=== PATIENT | female | born 1970 | race Caucasian/White ===

== ENCOUNTER 2017-08-04 14:19 | Emergency (ER) | payer OTHER ==
[2017-08-04] MEDS: ACETAMINOPHEN 325 MG TAB PO (15:21)
== END 2017-08-04 17:00 | disposition home or self-care (01) ==
LOC: FTE 14:19
DX: S93.401A Sprain of unspecified ligament of right ankle, initial encounter (principal); I10 Essential (primary) hypertension; E03.9 Hypothyroidism, unspecified; F17.210 Nicotine dependence, cigarettes, uncomplicated; X58.XXXA Exposure to other specified factors, initial encounter; Y92.9 Unspecified place or not applicable
CPT/HCPCS: 73610; 73610-RT; 99283-25

== ENCOUNTER 2017-08-24 17:47 | Emergency (ER) | payer SELFPAY, OTHER | END 2017-08-24 21:09 | disposition left against medical advice (07) | LOC: FTE 17:47 | DX: Z53.21 Procedure and treatment not carried out due to patient leaving prior to being seen by health care provider (principal) ==

== ENCOUNTER 2017-10-13 17:46 | Emergency (ER) | payer OTHER ==
[2017-10-13] MEDS ORDERED: ONDANSETRON 4 MG INJ IV (21:00)
[2017-10-13] MEDS ORDERED: ACETAMINOPHEN 325 MG TAB PO (21:00)
[2017-10-13] MEDS: IBUPROFEN 600 MG TAB PO (21:30)
[2017-10-13] MEDS: SOD CHLORIDE 0.9% 1,000 ML IV (21:31)
[2017-10-13] MEDS: ONDANSETRON 4 MG INJ IV (21:43)
[2017-10-13] MEDS: HYDROmorphONE 0.5 MG/0.5 ML SYG IV (21:43)
[2017-10-14] MEDS: HALOPERIDOL 5 MG INJ IM (01:57)
[2017-10-14] MEDS ORDERED: ACETAMINOPHEN 325 MG TAB PO (02:00)
[2017-10-14] MEDS ORDERED: HALOPERIDOL 5 MG INJ IM (02:00)
[2017-10-14] MEDS ORDERED: morphine 2 MG INJ IV (02:00)
[2017-10-14] MEDS ORDERED: BENZONATATE 100 MG CAP PO (02:00)
[2017-10-14] MEDS ORDERED: HYDROCODONE/APAP (5/325) TAB PO ×2 (02:00)
[2017-10-14] MEDS ORDERED: ALBUTEROL/IPRATROPIUM (NEB) 3 ML AMP HHN (02:00)
[2017-10-14] MEDS ORDERED: NACL 0.9% 3 ML SYG IV (02:00)
[2017-10-14] MEDS ORDERED: MECLIZINE 25 MG TAB PO (02:00)
[2017-10-14] MEDS ORDERED: traMADol 50 MG TAB PO (02:00)
[2017-10-14] MEDS ORDERED: LORAZEPAM 0.5 MG TAB PO (02:00)
[2017-10-14] MEDS ORDERED: PANTOPRAZOLE (EC) 40 MG TAB PO (06:00)
[2017-10-14] MEDS ORDERED: LEVOTHYROXINE 100 MCG TAB PO (07:00)
[2017-10-14] MEDS ORDERED: LOSARTAN 50 MG TAB PO (09:00)
[2017-10-14] MEDS ORDERED: HEPARIN 5,000 UNIT/0.5 ML VIAL SC (09:00)
[2017-10-14] MEDS ORDERED: HYDROXYCHLOROQUINE 200 MG TAB PO (09:00)
[2017-10-14] MEDS ORDERED: ASPIRIN 81 MG TAB PO (09:00)
[2017-10-14] MEDS ORDERED: GABAPENTIN 300 MG CAP PO (09:00)
[2017-10-14] MEDS ORDERED: ATORVASTATIN 20 MG TAB PO (21:00)
== END 2017-10-14 02:24 | disposition left against medical advice (07) ==
LOC: E/R 10-14 02:24
DX: R53.1 Weakness (principal); I10 Essential (primary) hypertension; E03.9 Hypothyroidism, unspecified; F17.210 Nicotine dependence, cigarettes, uncomplicated; R40.2142 Coma scale, eyes open, spontaneous, at arrival to emergency department; R40.2252 Coma scale, best verbal response, oriented, at arrival to emergency department; R40.2362 Coma scale, best motor response, obeys commands, at arrival to emergency department
CPT/HCPCS: 96372; 96374; 96375; 99284-25

== ENCOUNTER 2017-10-14 16:11 | Inpatient (IN) | payer OTHER ==
[2017-10-14] MEDS ORDERED: LORAZEPAM 2 MG INJ (16:40)
[2017-10-14] MEDS: morphine 4 MG/ML VIAL IV (17:53)
[2017-10-14] MEDS: ONDANSETRON 4 MG INJ IV ×2 (17:53→21:00)
[2017-10-14 17:56] LABS: ADD MAN DIFF? NO
[2017-10-14 17:59] LABS: BASOPHILS % 0.6 % (0.0-2.0); EOSINOPHILS # 0.2 10^3/ul (0.0-0.5); EOSINOPHILS % 3.1 % (0.0-7.0); HEMATOCRIT 40.7 % (37.0-47.0); HEMOGLOBIN 13.7 g/dl (12.0-16.0); LYMPHOCYTES # 1.8 10^3/ul (0.8-2.9); LYMPHOCYTES % 27.2 % (15.0-51.0); MEAN CORPUSCULAR HEMOGLOBIN 29.3 pg (29.0-33.0); MEAN CORPUSCULAR HGB CONC 33.7 g/dl (32.0-37.0); MEAN CORPUSCULAR VOLUME 87.2 fl (82.0-101.0); MEAN PLATELET VOLUME 9.2 fl (7.4-10.4); MONOCYTE # 0.7 10^3/ul (0.3-0.9); MONOCYTES % 9.8 % (0.0-11.0); PLATELET COUNT 232 10^3/UL (140-415); RED BLOOD COUNT 4.67 10^6/ul (4.20-5.40); RED CELL DISTRIBUTION WIDTH 12.4 % (11.5-14.5)
[2017-10-14 17:59] LABS: WHITE BLOOD COUNT 6.7 10^3/ul (4.8-10.8)
[2017-10-14 18:17] LABS: ANION GAP 12 (8-16); BLOOD UREA NITROGEN 24 mg/dl (7-20); CALCIUM 9.2 mg/dl (8.4-10.2); CARBON DIOXIDE 28 mmol/L (21-31); CHLORIDE 107 mmol/L (97-110); CREATININE 0.93 mg/dl (0.44-1.00); GLUCOSE 87 mg/dl (70-220); POTASSIUM 4.4 mmol/L (3.5-5.1); SODIUM 143 mmol/L (135-144)
[2017-10-14 18:19] LABS: INR 0.96; PARTIAL THROMBOPLASTIN TIME 33.7 Sec (25.0-35.0); PROTIME 12.9 Sec (11.9-14.9)
[2017-10-14] MEDS: LORAZEPAM 2 MG INJ IV (18:31)
[2017-10-14 18:42] LABS: ETHANOL < 10.0 mg/dl
[2017-10-14 18:48] LABS: OPIATES Negative (NEGATIVE)
[2017-10-14 18:50] LABS: AMPHETAMINE/METHAMPHETAMINE Positive (NEGATIVE); BARBITURATES Negative (NEGATIVE); BENZODIAZEPINES Negative (NEGATIVE); CANNABINOIDS Positive (NEGATIVE); COCAINE Negative (NEGATIVE)
[2017-10-14] MEDS: PANTOPRAZOLE (EC) 40 MG TAB PO (19:00)
[2017-10-15] MEDS: LORAZEPAM 2 MG INJ IV (04:00)
[2017-10-15] MEDS: LEVOTHYROXINE 100 MCG TAB PO (08:37)
[2017-10-15] MEDS: HYDROXYCHLOROQUINE 200 MG TAB PO (08:38)
[2017-10-15] MEDS: LOSARTAN 50 MG TAB PO (08:38)
[2017-10-15] MEDS: ENOXAPARIN 40 MG/0.4 ML SYG SC (08:39)
[2017-10-15] MEDS: HYDROCODONE/APAP (5/325) TAB PO ×2 (09:21→18:11)
[2017-10-15] MEDS: PANTOPRAZOLE 40 MG INJ IV ×2 (10:00→18:19)
[2017-10-15 11:15] LABS: COMPLEMENT C3 108 mg/dl (88-165); COMPLEMENT C4 47 mg/dl (14-44)
[2017-10-15] MEDS: ASPIRIN 81 MG TAB PO (20:07)
[2017-10-15] MEDS: ATORVASTATIN 40 MG TAB PO (20:11)
[2017-10-15] MEDS: morphine 2 MG INJ IV (20:28)
[2017-10-15] MEDS ORDERED: HYDROCODONE/APAP (10/325) TAB PO (20:30)
[2017-10-16] MEDS: HYDROXYCHLOROQUINE 200 MG TAB PO (09:05)
[2017-10-16] MEDS: LEVOTHYROXINE 100 MCG TAB PO (09:06)
[2017-10-16] MEDS: LOSARTAN 50 MG TAB PO (09:06)
[2017-10-16] MEDS: ASPIRIN 81 MG TAB PO (09:06)
[2017-10-16 17:26] LABS: ANA SCREEN POSITIVE (NEGATIVE)
[2017-10-17 10:11] LABS: ANA PATTERN NUCLEOLAR
[2017-10-18 07:57] LABS: ANTI-DNA (DOUBLE STRANDED) <95 U/mL (< 301)
== END 2017-10-16 18:50 | disposition home health service (06) | DRG 66 ==
LOC: MS4 19:35 → E/R 16:11 → MS4 18:10
DX: I63.9 Cerebral infarction, unspecified (principal); M79.661 Pain in right lower leg; R53.1 Weakness; F19.10 Other psychoactive substance abuse, uncomplicated; Z79.82 Long term (current) use of aspirin
CPT/HCPCS: 36415; 70551; 72148; 80048; 80306; 80307; 84703; 85025; 85610; 85730; 86038; 86160; 86226; 93306; 93880; 96374; 96375; 97116; 97162; 97530; 99285-25; G0378

== ENCOUNTER 2018-10-08 05:16 | Emergency (ER) | payer MEDICAID, OTHER ==
[2018-10-08] MEDS: DEXAMETHASONE 10 MG/ML 1 ML INJ IM (06:31)
[2018-10-08] MEDS: ONDANSETRON (ODT) 4 MG TAB ODT (06:31)
[2018-10-08] MEDS: HYDROCODONE/APAP (5/325) TAB PO (06:31)
[2018-10-08] MEDS: ATORVASTATIN 40 MG TAB PO (07:02)
[2018-10-08] MEDS: AMLODIPINE 5 MG TAB PO (07:02)
== END 2018-10-08 07:06 | disposition home or self-care (01) ==
LOC: FTE 05:16
DX: M54.5 Low back pain (principal); I10 Essential (primary) hypertension; F17.210 Nicotine dependence, cigarettes, uncomplicated
CPT/HCPCS: 96372; 99284-25

== ENCOUNTER 2019-02-20 08:32 | Emergency (ER) | payer OTHER ==
[2019-02-20] MEDS: KETOROLAC 30 MG INJ IM (09:37)
[2019-02-20 09:53] LABS: ADD MAN DIFF? NO
[2019-02-20 10:02] LABS: WHITE BLOOD COUNT 4.7 10^3/ul (4.8-10.8)
[2019-02-20 10:02] LABS: BASOPHILS % 0.8 % (0.0-2.0); EOSINOPHILS # 0.2 10^3/ul (0.0-0.5); EOSINOPHILS % 3.4 % (0.0-7.0); HEMATOCRIT 41.1 % (37.0-47.0); HEMOGLOBIN 13.3 g/dl (12.0-16.0); LYMPHOCYTES # 1.6 10^3/ul (0.8-2.9); LYMPHOCYTES % 34.2 % (15.0-51.0); MEAN CORPUSCULAR HEMOGLOBIN 29.5 pg (29.0-33.0); MEAN CORPUSCULAR HGB CONC 32.4 g/dl (32.0-37.0); MEAN CORPUSCULAR VOLUME 91.1 fl (82.0-101.0); MEAN PLATELET VOLUME 9.4 fl (7.4-10.4); MONOCYTE # 0.4 10^3/ul (0.3-0.9); MONOCYTES % 9.1 % (0.0-11.0); NEUTROPHIL # 2.5 10^3/ul (1.6-7.5); NEUTROPHILS % 52.3 % (39.0-77.0); PLATELET COUNT 202 10^3/UL (140-415); RED BLOOD COUNT 4.51 10^6/ul (4.20-5.40); RED CELL DISTRIBUTION WIDTH 12.7 % (11.5-14.5)
[2019-02-20 10:18] LABS: ALANINE AMINOTRANSFERASE 21 IU/L (13-69); ALBUMIN 4.1 g/dl (3.3-4.9); ALBUMIN/GLOBULIN RATIO 1.24; ALKALINE PHOSPHATASE 93 IU/L (42-121); ANION GAP 4 (5-13); ASPARTATE AMINO TRANSFERASE 21 IU/L (15-46); BILIRUBIN,INDIRECT 0.4 mg/dl (0-1.1); BILIRUBIN,TOTAL 0.4 mg/dl (0.2-1.3); BLOOD UREA NITROGEN 18 mg/dl (7-20); CALCIUM 9.4 mg/dl (8.4-10.2); CARBON DIOXIDE 31 mmol/L (21-31); CHLORIDE 105 mmol/L (97-110); CREATININE 1.04 mg/dl (0.44-1.00); Estimated GFR 56 mL/min (>60); GLUCOSE 94 mg/dl (70-220); SODIUM 140 mmol/L (135-144); TOTAL PROTEIN 7.4 g/dl (6.1-8.1)
[2019-02-20 11:15] LABS: ADD UMIC YES; UR ASCORBIC ACID NEGATIVE (NEGATIVE); UR BACTERIA FEW /HPF (NONE SEEN); UR BILIRUBIN (Dip) NEGATIVE (NEGATIVE); UR BLOOD (Dip) NEGATIVE (NEGATIVE); UR CLARITY SLIGHTLY CLOUDY (CLEAR); UR COLOR AMBER (YELLOW); UR GLUCOSE (Dip) NEGATIVE (NEGATIVE); UR KETONES (Dip) NEGATIVE (NEGATIVE); UR LEUKOCYTE ESTERASE (Dip) NEGATIVE Leu/ul (NEGATIVE); UR MUCUS MANY /HPF (NONE SEEN); UR NITRITE (Dip) NEGATIVE (NEGATIVE); UR RBC 3 /HPF (0-5); UR SPECIFIC GRAVITY (Dip) 1.028 (1.003-1.030); UR SQUAMOUS EPITHELIAL CELL MODERATE /HPF (FEW); UR TOTAL PROTEIN (Dip) 1+ mg/dl (NEGATIVE); UR UROBILINOGEN (Dip) 1+ mg/dL (NEGATIVE); UR WBC 15 /HPF (0-5)
== END 2019-02-20 12:24 | disposition home or self-care (01) ==
LOC: FTE 08:32
DX: M79.89 Other specified soft tissue disorders (principal); E03.9 Hypothyroidism, unspecified; F17.210 Nicotine dependence, cigarettes, uncomplicated; I10 Essential (primary) hypertension; Z79.82 Long term (current) use of aspirin
CPT/HCPCS: 80053; 81001; 81025; 85025; 93970; 96372; 99285-25